=== PATIENT | male | born 1990 | race African-American/Black ===

== ENCOUNTER 2018-10-29 23:49 | Emergency (ER) | payer MEDICAID, OTHER ==
[~2018-10-29] VITALS: Ht 182.9 cm; Wt 75.7 kg
[2018-10-30 04:14] VITALS: BP 127/57
[2018-10-30] MEDS ORDERED: LIDOCAINE HCL 2% TOP JELLY 5ML TOP ONE ×2 (04:45→05:00)
[2018-10-30] MEDS ORDERED: LIDOCAINE 2% JELLY 11ml (GLYDO) ONE ×2 (04:46→05:19)
== END 2018-10-30 05:40 | disposition home or self-care (01) ==
LOC: EDBD 23:49 → ER 23:49
DX: N47.2 Paraphimosis (principal)
CPT/HCPCS: 54450